=== PATIENT | male | born 1990 | race Caucasian/White ===

== ENCOUNTER 2021-12-31 14:29 | Emergency (ER) | payer OTHER ==
[2021-12-31 14:57] LABS: Bilirubin Negative (Negative); Blood, Urine Trace (Negative); Clarity Clear (Clear); Glucose, Urine (Dipstick) Negative (Negative); Ketone, Urine Trace mg/dL (Negative); Leukocyte Negative (Negative); Nitrite Negative (Negative); Protein, Urine (Dipstick) Negative (Neg-Trace); Specific Gravity, Urine 1.025 (1.005-1.030); Urobilinogen 0.2 mg/dL (Less than 2); pH, Urine 6.5 (5.0-9.0)
[2021-12-31 15:09] LABS: Bacteria/HPF Rare-Few HPF (None Seen); Squamous Epithelial 0-3 HPF (0-3)
[2021-12-31] MEDS ORDERED: cefTRIAXone\\ROCEPHIN 250 MG VIAL ONE (15:42)
[2021-12-31] MEDS ORDERED: Lidocaine 1% (PF) 30 ML VIAL ONE (15:43)
[2021-12-31] MEDS ORDERED: Azithromycin 250 MG TAB ONE (15:43)
[2022-01-01 15:54] LABS: Chlam.trachomatis by PCR,Urine Not Detected (NotDetected)
== END 2021-12-31 16:05 | disposition home or self-care (01) ==
LOC: MADERS 14:29
DX: R30.0 Dysuria (principal); F17.210 Nicotine dependence, cigarettes, uncomplicated
CPT/HCPCS: 81003; 81015; 87086; 87491; 87591; 96372; 99283; J0696; J2001